=== PATIENT | female | born 1960 | race Caucasian/White ===

== ENCOUNTER 2020-07-03 16:04 | Outpatient (CLI) | payer OTHER | END 2020-07-03 16:05 | disposition home or self-care (01) | LOC: BICMAMMO 16:04 | PROVIDERS: ATTEND Physician Assistant | DX: Z12.31 Encounter for screening mammogram for malignant neoplasm of breast (principal) | CPT/HCPCS: 77063; 77067 ==

== ENCOUNTER 2020-07-31 09:36 | Outpatient (CLI) | payer OTHER | END 2020-07-31 09:37 | disposition home or self-care (01) | LOC: BICRAD 09:36 | PROVIDERS: ATTEND Physician Assistant | DX: Z00.00 Encounter for general adult medical examination without abnormal findings (principal); M54.31 Sciatica, right side; R07.81 Pleurodynia; R10.31 Right lower quadrant pain; M51.35 Other intervertebral disc degeneration, thoracolumbar region; W19.XXXA Unspecified fall, initial encounter | CPT/HCPCS: 71111; 72100 ==